=== PATIENT | female | born 1980 | race Caucasian/White ===

== ENCOUNTER → 2018-07-08 | Outpatient (CLI) | payer OTHER | LOC: EMCIMAGING 10:17 | PROVIDERS: ATTEND Internal Medicine | DX: Z12.31 Encounter for screening mammogram for malignant neoplasm of breast (principal); M84.375A Stress fracture, left foot, initial encounter for fracture; M81.0 Age-related osteoporosis without current pathological fracture | CPT/HCPCS: 77067-PN; 77080-PN ==

== ENCOUNTER → 2018-07-14 | Outpatient (CLI) | payer OTHER | LOC: FIMAGING 06:22 ==